=== PATIENT | male | born 1955 | race Caucasian/White ===

== ENCOUNTER 2020-02-12 17:54 | Inpatient (IN) ==
[2020-02-12] MEDS ORDERED: Furosemide 40 mg/4 ml IV VIAL IV SLOW PU ONE ×2 (18:19→22:24)
[2020-02-12] MEDS ORDERED: Diltiazem IV push/loading dose 5 MG/ML 5 ML vial (25 mg) IV SLOW PU ONE (18:51)
[2020-02-12] MEDS ORDERED: Diltiazem IV BAG D5W Premix 125 MG/125 ML BAG IV SCH ×2 (20:00→23:45)
[2020-02-12 20:51] LABS: ABS Lymphocytes 1.2 10^3/ul (1.0-4.8); ABS Monocytes 1.2 10^3/ul (0-0.8); Eosinophil % 0.3 %; Hematocrit 44 % (42-52); Hemoglobin 14.5 g/dL (14.0-18.0); Mean Corpuscular HGB Conc 33 g/dL (31-36); Mean Corpuscular Hemoglobin 33 pg (27-31); Mean Corpuscular Volume 98 fL (80-94); Mean Platelet Volume 9.9 fL (7.4-10.4); Nucleated Red Blood Cells % 0.2; Platelet Count 215 10^3/uL (150-450); Red Blood Count 4.46 10^6 /uL (4.18-5.48); Red Cell Distribution Width 16 % (10-15); White Blood Count 12.1 10^3/uL (3.5-10.8)
[2020-02-12 21:09] LABS: AST 440 U/L (13-39); Albumin 3.7 g/dL (3.2-5.2); Albumin/Globulin Ratio 1.3 (1-3); Alkaline Phosphatase 184 U/L (34-104); Anion Gap 9 mmol/L (2-11); BUN/Creatinine Ratio 37.8 (8-20); Blood Urea Nitrogen 54 mg/dL (6-24); C Reactive Protein 31.66 mg/L (<8.01); CO2 Carbon Dioxide 22 mmol/L (22-32); Chloride 103 mmol/L (101-111); EGFR African American 60.1 (>60); EGFR Non-African American 49.6 (>60); Globulin 2.9 g/dL (2-4); Glucose 111 mg/dL (70-100); Potassium 4.9 mmol/L (3.5-5.0); Sodium 134 mmol/L (135-145); Total Protein 6.6 g/dL (6.4-8.9)
[2020-02-12 21:14] LABS: Troponin I 0.22 ng/mL (<0.03)
[2020-02-12] MEDS ORDERED: Iodixanol (CONTRAST) 320 MG/ML 100 ML SDV IV ONE (21:14)
[2020-02-12 21:27] LABS: ALT 588 U/L (7-52)
[2020-02-12 23:02] LABS: TSH (Thyroid Stimulating Horm) 3.73 mcIU/mL (0.34-5.60)
[2020-02-12] MEDS ORDERED: Ondansetron 4 mg VIAL 2 MG/ML 2 ml VIAL IV PRN (23:56)
[2020-02-13] LABS: Cholesterol 155 mg/dL; HDL Cholesterol 29.1 mg/dL; LDL Cholesterol 103 mg/dL; Triglycerides 117 mg/dL
[2020-02-13 00:25] LABS: Hepatitis B Surface Antigen Nonreactive (Nonreactive)
[2020-02-13 00:37] LABS: Troponin I 0.63 ng/mL (<0.03)
[2020-02-13 00:42] LABS: Hepatitis B Surface Ab Not Immune (Immune)
[2020-02-13 00:43] LABS: Hepatitis C Antibody Negative (Negative)
[2020-02-13 06:21] LABS: ABS Basophils 0.1 10^3/ul (0-0.2); ABS Eosinophils 0.1 10^3/ul (0-0.6); ABS Lymphocytes 1.3 10^3/ul (1.0-4.8); ABS Monocytes 0.9 10^3/ul (0-0.8); Eosinophil % 0.7 %; Hematocrit 40 % (42-52); Hemoglobin 13.5 g/dL (14.0-18.0); Mean Corpuscular HGB Conc 34 g/dL (31-36); Mean Corpuscular Hemoglobin 33 pg (27-31); Mean Corpuscular Volume 98 fL (80-94); Mean Platelet Volume 9.1 fL (7.4-10.4); Nucleated Red Blood Cells % 0.2; Platelet Count 188 10^3/uL (150-450); Red Cell Distribution Width 16 % (10-15); White Blood Count 10.6 10^3/uL (3.5-10.8)
[2020-02-13 06:47] LABS: Anion Gap 10 mmol/L (2-11); BUN/Creatinine Ratio 34.8 (8-20); Blood Urea Nitrogen 47 mg/dL (6-24); CO2 Carbon Dioxide 25 mmol/L (22-32); Calcium 8.3 mg/dL (8.6-10.3); Chloride 103 mmol/L (101-111); EGFR African American 64.2 (>60); Glucose 95 mg/dL (70-100); Sodium 138 mmol/L (135-145)
[2020-02-13 06:50] LABS: Troponin I 0.62 ng/mL (<0.03)
[2020-02-13] MEDS: Furosemide 40 mg/4 ml IV VIAL IV SLOW PU SCH ×2 (08:20→17:20)
[2020-02-13 16:27] LABS: Folate > 20.00 ng/mL (>3.99)
[2020-02-14] MEDS ORDERED: Enoxaparin 30 MG/0.3 ML SYR SUBCUT SCH (01:30)
[2020-02-14 06:46] LABS: ABS Eosinophils 0.2 10^3/ul (0-0.6); ABS Monocytes 0.8 10^3/ul (0-0.8); Hematocrit 39 % (42-52); Hemoglobin 13.3 g/dL (14.0-18.0); Lymphocyte % 10.2 %; Mean Corpuscular HGB Conc 34 g/dL (31-36); Mean Corpuscular Hemoglobin 34 pg (27-31); Mean Corpuscular Volume 98 fL (80-94); Mean Platelet Volume 9.1 fL (7.4-10.4); Nucleated Red Blood Cells % 0.1; Platelet Count 179 10^3/uL (150-450); Red Blood Count 3.98 10^6 /uL (4.18-5.48); Red Cell Distribution Width 16 % (10-15); White Blood Count 9.7 10^3/uL (3.5-10.8)
[2020-02-14 06:58] LABS: Albumin 3.3 g/dL (3.2-5.2); Albumin/Globulin Ratio 1.2 (1-3); BUN/Creatinine Ratio 41.4 (8-20); Calcium 8.4 mg/dL (8.6-10.3); EGFR African American 76.5 (>60); EGFR Non-African American 63.2 (>60); Globulin 2.7 g/dL (2-4); Potassium 3.7 mmol/L (3.5-5.0)
[2020-02-14] MEDS ORDERED: fentaNYL 100 mcg/2 ml 50 MCG/ML VIAL ONE (09:58)
[2020-02-14] MEDS ORDERED: Midazolam 5 mg/5 ml VIAL 1 mg/ml 5 ml VIAL (5 mg) ONE (09:58)
[2020-02-14] MEDS ORDERED: Flumazenil 0.5 mg/5 ml 0.1 MG/ML 5 ml VIAL ONE (09:59)
[2020-02-14] MEDS ORDERED: Naloxone 0.4 mg VIAL 0.4 mg/ml 1 ml VIAL ONE (09:59)
[2020-02-14] MEDS ORDERED: Amiodarone IV 150 mg/3 ml VIAL ONE (11:04)
[2020-02-14] MEDS: Furosemide 40 mg/4 ml IV VIAL IV SLOW PU SCH (14:51)
[2020-02-14] MEDS ORDERED: Potassium Chlor 10 meq TAB PO ONE (16:23)
[2020-02-14] MEDS: Amiodarone 400 mg TAB PO SCH (17:51)
[2020-02-15] MEDS ORDERED: Furosemide 20 mg/2 ml IV VIAL IV SLOW PU ONE (04:00)
[2020-02-15 06:25] LABS: Albumin 3.5 g/dL (3.2-5.2); Albumin/Globulin Ratio 1.3 (1-3); BUN/Creatinine Ratio 35.7 (8-20); Calcium 8.6 mg/dL (8.6-10.3); EGFR African American 61.5 (>60); EGFR Non-African American 50.9 (>60); Globulin 2.8 g/dL (2-4); Magnesium 2.3 mg/dL (1.9-2.7); Potassium 4.6 mmol/L (3.5-5.0); Total Bilirubin 1.1 mg/dL (0.2-1.0); Total Protein 6.3 g/dL (6.4-8.9)
[2020-02-15] MEDS: Amiodarone 400 mg TAB PO SCH ×3 (08:22→20:43)
[2020-02-15] MEDS ORDERED: Furosemide 100 mg/10 ml IV VIAL IV ONE (14:04)
[2020-02-16 06:25] LABS: ABS Eosinophils 0.2 10^3/ul (0-0.6); ABS Lymphocytes 1.3 10^3/ul (1.0-4.8); ABS Monocytes 0.8 10^3/ul (0-0.8); Eosinophil % 1.8 %; Hematocrit 41 % (42-52); Hemoglobin 13.7 g/dL (14.0-18.0); Lymphocyte % 12.3 %; Mean Corpuscular HGB Conc 34 g/dL (31-36); Mean Corpuscular Hemoglobin 33 pg (27-31); Mean Corpuscular Volume 98 fL (80-94); Mean Platelet Volume 9.4 fL (7.4-10.4); Nucleated Red Blood Cells % 0.1; Platelet Count 197 10^3/uL (150-450); Red Blood Count 4.14 10^6 /uL (4.18-5.48); Red Cell Distribution Width 17 % (10-15); White Blood Count 10.2 10^3/uL (3.5-10.8)
[2020-02-16 06:42] LABS: Albumin 3.4 g/dL (3.2-5.2); Albumin/Globulin Ratio 1.2 (1-3); BUN/Creatinine Ratio 37.8 (8-20); Calcium 8.6 mg/dL (8.6-10.3); EGFR African American 64.2 (>60); Globulin 2.8 g/dL (2-4); Magnesium 2.1 mg/dL (1.9-2.7); Potassium 3.4 mmol/L (3.5-5.0); Total Protein 6.2 g/dL (6.4-8.9)
[2020-02-16] MEDS: Amiodarone 400 mg TAB PO SCH ×3 (07:49→20:33)
[2020-02-16] MEDS ORDERED: Potassium Chlor 20 meq TAB.ER PO ONE (09:20)
[2020-02-16] MEDS ORDERED: Potassium Chlor 10 meq TAB PO ONE (10:39)
[2020-02-16] MEDS ORDERED: Furosemide 100 mg/10 ml IV VIAL IV ONE (10:39)
[2020-02-16] MEDS ORDERED: Al Hydrox/Mg Hydrox/Simet LIQ 30 ML UDC PO PRN (15:03)
[2020-02-17 06:41] LABS: INR 2.72 (0.82-1.09)
[2020-02-17 06:52] LABS: Albumin 3.3 g/dL (3.2-5.2); Albumin/Globulin Ratio 1.2 (1-3); BUN/Creatinine Ratio 45.3 (8-20); Calcium 8.7 mg/dL (8.6-10.3); EGFR African American 68.2 (>60); EGFR Non-African American 56.4 (>60); Globulin 2.7 g/dL (2-4); HDL Cholesterol 27.1 mg/dL; Potassium 3.8 mmol/L (3.5-5.0); Total Bilirubin 1.1 mg/dL (0.2-1.0)
[2020-02-17] MEDS: Amiodarone 400 mg TAB PO SCH ×3 (09:20→21:18)
[2020-02-17] MEDS ORDERED: Potassium Chlor 10 meq TAB PO ONE (12:15)
[2020-02-17 12:48] LABS: HIV 4th Generation Nonreactive (Nonreactive)
[2020-02-17] MEDS: Bumetanide IV 0.25 MG/ML 4 ml VIAL (1 mg) SLOW PUSH ONE ×2 (13:14→13:41)
[2020-02-18 08:47] LABS: Albumin 3.2 g/dL (3.2-5.2); Albumin/Globulin Ratio 1.1 (1-3); BUN/Creatinine Ratio 35.5 (8-20); Calcium 8.6 mg/dL (8.6-10.3); EGFR Non-African American 50.4 (>60); Globulin 2.8 g/dL (2-4); Total Bilirubin 0.9 mg/dL (0.2-1.0)
[2020-02-18] MEDS: Amiodarone 400 mg TAB PO SCH ×3 (08:53→20:54)
[2020-02-18 09:16] LABS: INR 2.26 (0.82-1.09)
[2020-02-18] MEDS ORDERED: Potassium Chlor 20 meq TAB.ER PO ONE (11:00)
[2020-02-19 07:15] LABS: INR 1.77 (0.82-1.09)
[2020-02-19 07:24] LABS: Albumin 3.4 g/dL (3.2-5.2); Albumin/Globulin Ratio 1.2 (1-3); BUN/Creatinine Ratio 29.2 (8-20); Calcium 8.7 mg/dL (8.6-10.3); EGFR African American 49.9 (>60); EGFR Non-African American 41.2 (>60); Globulin 2.9 g/dL (2-4); Potassium 4.2 mmol/L (3.5-5.0); Total Protein 6.3 g/dL (6.4-8.9)
[2020-02-19] MEDS: Amiodarone 400 mg TAB PO SCH (09:22)
[2020-02-19 11:23] VITALS: BP 112/60
[2020-02-20] MEDS ORDERED: Amiodarone 400 mg TAB PO SCH (09:00)
== END 2020-02-19 14:50 | disposition home or self-care (01) | DRG 308 ==
LOC: ED 17:54 → MEDTELE 02-13 00:57
PROVIDERS: ADMIT Internal Medicine; ATTEND Internal Medicine

== ENCOUNTER 2020-05-10 15:33 | Observation (INO) ==
[2020-05-10] MEDS ORDERED: Diltiazem IV push/loading dose 5 MG/ML 5 ML vial (25 mg) IV SLOW PU ONE (18:30)
[2020-05-10 18:53] LABS: ABS Basophils 0.1 10^3/ul (0-0.2); ABS Eosinophils 0.3 10^3/ul (0-0.6); ABS Lymphocytes 1.4 10^3/ul (1.0-4.8); ABS Monocytes 0.8 10^3/ul (0-0.8); ABS Neutrophils 7.5 10^3/ul (1.5-7.7); Eosinophil % 2.6 %; Hematocrit 42 % (42-52); Lymphocyte % 13.6 %; Mean Corpuscular HGB Conc 34 g/dL (31-36); Mean Corpuscular Hemoglobin 33 pg (27-31); Mean Corpuscular Volume 98 fL (80-94); Mean Platelet Volume 8.8 fL (7.4-10.4); Platelet Count 226 10^3/uL (150-450); Red Blood Count 4.27 10^6 /uL (4.18-5.48); Red Cell Distribution Width 18 % (10-15)
[2020-05-10] MEDS ORDERED: Furosemide 40 mg/4 ml IV VIAL IV SLOW PU ONE (19:10)
[2020-05-10 19:11] LABS: ALT 55 U/L (7-52); AST 49 U/L (13-39); Albumin 3.5 g/dL (3.2-5.2); Albumin/Globulin Ratio 1.1 (1-3); Alkaline Phosphatase 143 U/L (34-104); Anion Gap 8 mmol/L (2-11); Blood Urea Nitrogen 51 mg/dL (6-24); CO2 Carbon Dioxide 28 mmol/L (22-32); Calcium 8.9 mg/dL (8.6-10.3); Chloride 99 mmol/L (101-111); EGFR African American 62.4 (>60); EGFR Non-African American 51.6 (>60); Globulin 3.1 g/dL (2-4); Glucose 121 mg/dL (70-100); Potassium 4.2 mmol/L (3.5-5.0); Sodium 135 mmol/L (135-145); Total Protein 6.6 g/dL (6.4-8.9)
[2020-05-10 19:15] LABS: Troponin I 0.04 ng/mL (<0.03)
[2020-05-10 23:22] LABS: Troponin I 0.04 ng/mL (<0.03)
[2020-05-11 05:41] LABS: TSH Ultra Thyroid Stim Horm 5.81 mcIU/mL (0.34-5.60)
[2020-05-11] MEDS: Aspirin EC 81 mg TAB.EC (enteric coated) PO SCH (08:48)
[2020-05-11] MEDS ORDERED: Furosemide 40 mg/4 ml IV VIAL IV ONE (09:30)
[2020-05-11] MEDS ORDERED: Furosemide 40 mg/4 ml IV VIAL IV SLOW PU ONE ×2 (15:00)
[2020-05-11 16:06] LABS: BUN/Creatinine Ratio 36.7 (8-20); Blood Urea Nitrogen 51 mg/dL (6-24); CO2 Carbon Dioxide 26 mmol/L (22-32); Calcium 8.9 mg/dL (8.6-10.3); Chloride 101 mmol/L (101-111); EGFR African American 61.9 (>60); EGFR Non-African American 51.1 (>60); Glucose 87 mg/dL (70-100); Sodium 134 mmol/L (135-145)
[2020-05-11 16:24] LABS: Anion Gap 7 mmol/L (2-11)
[2020-05-11 19:18] LABS: Magnesium 2.3 mg/dL (1.9-2.7); Potassium Redraw 3.6 mmol/L (3.5-5.0)
[2020-05-12] MEDS ORDERED: Hemorrhoidal OINT 1 TUBE TOPICAL PRN (03:41)
[2020-05-12 08:25] LABS: BUN/Creatinine Ratio 35.6 (8-20); Calcium 8.8 mg/dL (8.6-10.3); EGFR African American 65.7 (>60); EGFR Non-African American 54.3 (>60); Magnesium 2.3 mg/dL (1.9-2.7); Potassium 3.8 mmol/L (3.5-5.0)
[2020-05-12] MEDS ORDERED: Furosemide 40 mg/4 ml IV VIAL IV SLOW PU SCH (09:00)
[2020-05-12] MEDS ORDERED: Furosemide 40 mg/4 ml IV VIAL IV SCH (09:00)
[2020-05-12] MEDS ORDERED: Potassium Chlor 20 meq TAB.ER PO SCH (09:00)
[2020-05-12] MEDS: Aspirin EC 81 mg TAB.EC (enteric coated) PO SCH (09:38)
[2020-05-12] MEDS ORDERED: Metoprolol Tartrate 5 mg VIAL 5 ml VIAL (1 mg/ml) IV ONE (12:44)
[2020-05-12] MEDS ORDERED: Furosemide 40 mg/4 ml IV VIAL IV ONE (15:00)
[2020-05-12 19:24] VITALS: BP 94/59
== END 2020-05-12 19:00 | disposition short-term general hospital (02) ==
LOC: MED 15:33 → ED 15:33 → MED 05-11 02:00
PROVIDERS: ADMIT Nurse Practitioner Family; ATTEND Internal Medicine

== ENCOUNTER 2021-05-15 10:39 | Inpatient (IN) ==
[2021-05-15 11:05] LABS: ABS Basophils 0.1 10^3/ul (0-0.2); ABS Eosinophils 0.1 10^3/ul (0-0.6); ABS Lymphocytes 1.1 10^3/ul (1.0-4.8); ABS Neutrophils 6.6 10^3/ul (1.5-7.7); Eosinophil % 0.6 %; Hematocrit 40 % (42-52); Hemoglobin 13.4 g/dL (14.0-18.0); Lymphocyte % 12.8 %; Mean Corpuscular HGB Conc 33 g/dL (31-36); Mean Corpuscular Hemoglobin 33 pg (27-31); Mean Corpuscular Volume 99 fL (80-94); Mean Platelet Volume 8.1 fL (7.4-10.4); Platelet Count 218 10^3/uL (150-450); Red Blood Count 4.07 10^6 /uL (4.18-5.48); Red Cell Distribution Width 16 % (10-15); White Blood Count 8.8 10^3/uL (3.5-10.8)
[2021-05-15 11:31] LABS: Troponin I 0.06 ng/mL (<0.03)
[2021-05-15] MEDS ORDERED: Metoprolol Tartrate 5 mg VIAL 5 ml VIAL (1 mg/ml) IV ONE ×2 (11:40→13:45)
[2021-05-15 11:42] LABS: ALT 38 U/L (7-52); AST 46 U/L (13-39); Albumin 3.7 g/dL (3.2-5.2); Alkaline Phosphatase 170 U/L (35-149); Anion Gap 11 mmol/L (2-11); Blood Urea Nitrogen 57 mg/dL (6-24); CO2 Carbon Dioxide 20 mmol/L (22-32); Calcium 8.9 mg/dL (8.6-10.3); Chloride 104 mmol/L (101-111); EGFR African American 53.6 (>60); EGFR Non-African American 44.3 (>60); Globulin 3.6 g/dL (2-4); Glucose 117 mg/dL (70-100); Potassium 4.1 mmol/L (3.5-5.0); Sodium 135 mmol/L (135-145); Total Protein 7.3 g/dL (6.4-8.9)
[2021-05-15] MEDS ORDERED: Furosemide 40 mg/4 ml IV VIAL IV ONE ×2 (11:42→13:52)
[2021-05-15 12:03] LABS: Magnesium 2.4 mg/dL (1.9-2.7)
[2021-05-15 14:04] LABS: Digoxin 0.6 ng/ml (0.8-2.0)
[2021-05-15] MEDS ORDERED: Diltiazem (ADVAN VIAL) 100 MG/100 ML ADDV.BAG IV SCH (15:00)
[2021-05-15 15:09] LABS: Troponin I 0.07 ng/mL (<0.03)
[2021-05-15 20:00] LABS: Cholesterol 129 mg/dL; HDL Cholesterol 31.6 mg/dL; LDL Cholesterol 74 mg/dL; Triglycerides 118 mg/dL
[2021-05-15] MEDS ORDERED: Furosemide 40 mg/4 ml IV VIAL IV SLOW PU ONE (20:00)
[2021-05-16 08:41] LABS: ABS Basophils 0.1 10^3/ul (0-0.2); ABS Eosinophils 0.1 10^3/ul (0-0.6); ABS Lymphocytes 1.6 10^3/ul (1.0-4.8); ABS Monocytes 0.9 10^3/ul (0-0.8); ABS Neutrophils 6.3 10^3/ul (1.5-7.7); Eosinophil % 1.5 %; Hematocrit 42 % (42-52); Hemoglobin 13.6 g/dL (14.0-18.0); Lymphocyte % 17.8 %; Mean Corpuscular HGB Conc 33 g/dL (31-36); Mean Corpuscular Hemoglobin 33 pg (27-31); Mean Corpuscular Volume 100 fL (80-94); Mean Platelet Volume 8.4 fL (7.4-10.4); Nucleated Red Blood Cells % 0.1; Platelet Count 205 10^3/uL (150-450); Red Blood Count 4.15 10^6 /uL (4.18-5.48); Red Cell Distribution Width 16 % (10-15); White Blood Count 8.9 10^3/uL (3.5-10.8)
[2021-05-16 08:55] LABS: ALT 44 U/L (7-52); AST 52 U/L (13-39); Albumin 3.6 g/dL (3.2-5.2); Alkaline Phosphatase 157 U/L (35-149); Anion Gap 7 mmol/L (2-11); Blood Urea Nitrogen 56 mg/dL (6-24); CO2 Carbon Dioxide 27 mmol/L (22-32); Calcium 8.8 mg/dL (8.6-10.3); Chloride 101 mmol/L (101-111); EGFR African American 55.2 (>60); EGFR Non-African American 45.6 (>60); Globulin 3.5 g/dL (2-4); Glucose 89 mg/dL (70-100); Magnesium 2.5 mg/dL (1.9-2.7); Potassium 4.4 mmol/L (3.5-5.0); Sodium 135 mmol/L (135-145); Total Protein 7.1 g/dL (6.4-8.9)
[2021-05-16 08:59] LABS: Troponin I 0.08 ng/mL (<0.03)
[2021-05-16] MEDS ORDERED: Pneumococcal Vac 23-Polyvalent IM ONE (09:00)
[2021-05-16] MEDS: Coenzyme Q10 CAP (NF) ** ENTER STREGNTH IN LABEL DIRECTIONS PO SCH (10:13)
[2021-05-16] MEDS ORDERED: Furosemide 40 mg/4 ml IV VIAL IV SLOW PU ONE (11:20)
[2021-05-16] MEDS: Furosemide 40 mg/4 ml IV VIAL IV SCH ×2 (17:19→20:30)
[2021-05-17 07:17] LABS: ABS Basophils 0.1 10^3/ul (0-0.2); ABS Eosinophils 0.2 10^3/ul (0-0.6); ABS Lymphocytes 1.4 10^3/ul (1.0-4.8); ABS Monocytes 0.9 10^3/ul (0-0.8); ABS Neutrophils 5.8 10^3/ul (1.5-7.7); Eosinophil % 2.5 %; Hematocrit 39 % (42-52); Lymphocyte % 16.6 %; Mean Corpuscular HGB Conc 34 g/dL (31-36); Mean Corpuscular Hemoglobin 33 pg (27-31); Mean Corpuscular Volume 100 fL (80-94); Mean Platelet Volume 8.8 fL (7.4-10.4); Platelet Count 187 10^3/uL (150-450); Red Blood Count 3.89 10^6 /uL (4.18-5.48); Red Cell Distribution Width 16 % (10-15); White Blood Count 8.3 10^3/uL (3.5-10.8)
[2021-05-17 07:34] LABS: Blood Urea Nitrogen 53 mg/dL (6-24); CO2 Carbon Dioxide 27 mmol/L (22-32); Calcium 8.8 mg/dL (8.6-10.3); Chloride 100 mmol/L (101-111); EGFR Non-African American 44.6 (>60); Glucose 91 mg/dL (70-100); Magnesium 2.5 mg/dL (1.9-2.7); Sodium 136 mmol/L (135-145)
[2021-05-17] MEDS: Furosemide 40 mg/4 ml IV VIAL IV SCH (08:44)
[2021-05-17] MEDS: Coenzyme Q10 CAP (NF) ** ENTER STREGNTH IN LABEL DIRECTIONS PO SCH (08:48)
[2021-05-17 09:37] LABS: Anion Gap 9 mmol/L (2-11)
[2021-05-17] MEDS: Furosemide 100 mg/10 ml IV VIAL IV SCH (15:23)
[2021-05-17] MEDS: guaiFENesin/CODIENE 100mg/10mg 5 ML UDC PO PRN (20:27)
[2021-05-18 07:23] LABS: ABS Eosinophils 0.2 10^3/ul (0-0.6); ABS Lymphocytes 1.4 10^3/ul (1.0-4.8); ABS Monocytes 0.9 10^3/ul (0-0.8); ABS Neutrophils 5.9 10^3/ul (1.5-7.7); Hematocrit 39 % (42-52); Hemoglobin 12.9 g/dL (14.0-18.0); Lymphocyte % 16.9 %; Mean Corpuscular HGB Conc 33 g/dL (31-36); Mean Corpuscular Hemoglobin 33 pg (27-31); Mean Corpuscular Volume 100 fL (80-94); Mean Platelet Volume 8.5 fL (7.4-10.4); Platelet Count 194 10^3/uL (150-450); Red Blood Count 3.91 10^6 /uL (4.18-5.48); Red Cell Distribution Width 17 % (10-15); White Blood Count 8.5 10^3/uL (3.5-10.8)
[2021-05-18 07:39] LABS: Calcium 8.9 mg/dL (8.6-10.3); EGFR African American 53.6 (>60); EGFR Non-African American 44.3 (>60); Magnesium 2.4 mg/dL (1.9-2.7)
[2021-05-18] MEDS: Coenzyme Q10 CAP (NF) ** ENTER STREGNTH IN LABEL DIRECTIONS PO SCH (08:06)
[2021-05-18] MEDS: Furosemide 100 mg/10 ml IV VIAL IV SCH ×2 (08:55→15:28)
[2021-05-18] MEDS: guaiFENesin/CODIENE 100mg/10mg 5 ML UDC PO PRN ×2 (13:38→20:15)
[2021-05-18 15:47] LABS: HIT ELISA 0.276 OD (<0.400); Heparin PF4 Antibody Interp Negative (Negative)
[2021-05-19] MEDS: guaiFENesin/CODIENE 100mg/10mg 5 ML UDC PO PRN (00:14)
[2021-05-19 06:45] LABS: ABS Eosinophils 0.3 10^3/ul (0-0.6); ABS Lymphocytes 1.9 10^3/ul (1.0-4.8); ABS Monocytes 0.9 10^3/ul (0-0.8); ABS Neutrophils 6.1 10^3/ul (1.5-7.7); Eosinophil % 2.8 %; Hematocrit 41 % (42-52); Hemoglobin 13.6 g/dL (14.0-18.0); Lymphocyte % 20.8 %; Mean Corpuscular HGB Conc 33 g/dL (31-36); Mean Corpuscular Hemoglobin 33 pg (27-31); Mean Corpuscular Volume 100 fL (80-94); Nucleated Red Blood Cells % 0.2; Platelet Count 223 10^3/uL (150-450); Red Blood Count 4.14 10^6 /uL (4.18-5.48); Red Cell Distribution Width 16 % (10-15); White Blood Count 9.2 10^3/uL (3.5-10.8)
[2021-05-19 07:04] LABS: Calcium 9.2 mg/dL (8.6-10.3); EGFR African American 49.9 (>60); EGFR Non-African American 41.2 (>60); Magnesium 2.5 mg/dL (1.9-2.7); Potassium 4.1 mmol/L (3.5-5.0)
[2021-05-19] MEDS: Coenzyme Q10 CAP (NF) ** ENTER STREGNTH IN LABEL DIRECTIONS PO SCH (08:18)
[2021-05-19] MEDS: Furosemide 100 mg/10 ml IV VIAL IV SCH ×2 (08:24→15:33)
[2021-05-20 06:27] LABS: Hematocrit 41 % (42-52); Hemoglobin 13.5 g/dL (14.0-18.0); Mean Corpuscular HGB Conc 33 g/dL (31-36); Mean Corpuscular Hemoglobin 33 pg (27-31); Mean Corpuscular Volume 100 fL (80-94); Mean Platelet Volume 8.5 fL (7.4-10.4); Platelet Count 200 10^3/uL (150-450); Red Blood Count 4.11 10^6 /uL (4.18-5.48); Red Cell Distribution Width 16 % (10-15); White Blood Count 7.9 10^3/uL (3.5-10.8)
[2021-05-20 06:48] LABS: Calcium 8.8 mg/dL (8.6-10.3); EGFR African American 50.6 (>60); EGFR Non-African American 41.8 (>60); Magnesium 2.5 mg/dL (1.9-2.7); Phosphorus 3.6 mg/dL (2.5-5.0)
[2021-05-20 06:50] LABS: Potassium 4.6 mmol/L (3.5-5.0)
[2021-05-20] MEDS: Furosemide 100 mg/10 ml IV VIAL IV SCH (08:24)
[2021-05-20] MEDS: Coenzyme Q10 CAP (NF) ** ENTER STREGNTH IN LABEL DIRECTIONS PO SCH (08:27)
[2021-05-20] MEDS ORDERED: Polyethylene Glycol 3350 17 GM PACKET PO PRN (14:57)
[2021-05-21] MEDS ORDERED: Al Hydrox/Mg Hydrox/Simet LIQ 30 ML UDC PO PRN (00:02)
[2021-05-21 06:09] LABS: CO2 Carbon Dioxide 19 mmol/L (22-32); Calcium 8.9 mg/dL (8.6-10.3); Chloride 103 mmol/L (101-111); Sodium 135 mmol/L (135-145)
[2021-05-21 06:14] LABS: Blood Urea Nitrogen 60 mg/dL (6-24); EGFR African American 52.4 (>60); EGFR Non-African American 43.3 (>60); Glucose 94 mg/dL (70-100)
[2021-05-21 06:20] LABS: Anion Gap 13 mmol/L (2-11)
[2021-05-21] MEDS ORDERED: Furosemide 100 mg/10 ml IV VIAL IV SCH (09:00)
[2021-05-21] MEDS: Coenzyme Q10 CAP (NF) ** ENTER STREGNTH IN LABEL DIRECTIONS PO SCH (09:08)
[2021-05-21 16:59] VITALS: BP 113/63
== END 2021-05-21 20:07 | disposition home or self-care (01) | DRG 292 ==
LOC: SUATTDRO → ED 10:39 → MEDTELE 17:11 → SUATTDRO 17:11 → MEDTELE 20:45
PROVIDERS: ADMIT Internal Medicine; ATTEND Internal Medicine